=== PATIENT | male | born 2000 | race Two or more races ===

== ENCOUNTER → 2024-05-04 | Outpatient (CLI) | payer OTHER | LOC: M OUTALCOH 11:45 | PROVIDERS: ATTEND Psychiatry & Neurology Psychiatry | DX: F10.10 Alcohol abuse, uncomplicated (principal) ==

== ENCOUNTER → 2024-05-15 | Outpatient (RCR) | payer OTHER | LOC: M OUTALCOH 08:26 | PROVIDERS: ATTEND Psychiatry & Neurology Psychiatry | DX: F10.10 Alcohol abuse, uncomplicated (principal) ==

== ENCOUNTER 2024-06-13 16:00 | Outpatient (RCR) | payer OTHER | END 2024-06-15 | LOC: M OUTALCOH 16:00 | PROVIDERS: ATTEND Psychiatry & Neurology Psychiatry | DX: F10.10 Alcohol abuse, uncomplicated (principal) ==

== ENCOUNTER 2024-07-11 16:00 | Outpatient (RCR) | payer OTHER | END 2024-07-15 | LOC: M OUTALCOH 16:00 | PROVIDERS: ATTEND Psychiatry & Neurology Psychiatry | DX: F10.10 Alcohol abuse, uncomplicated (principal) ==